=== PATIENT | female | born 1995 | race Caucasian/White ===

== ENCOUNTER 2020-01-03 16:55 | Emergency (ER) | payer OTHER, SELFPAY ==
[2020-01-03 17:17] VITALS: BP 115/68; PULSE 66; RESP 20; TEMP 36.5; O2SAT 100
--- NOTE | 2020-01-03 17:46 | ED.GENADULT ---
HPI - General Adult General Chief complaint: Upper Respiratory Infection Stated complaint: EARACHE/SORE THROAT/CONGESTION Time Seen by Provider: 01/03/20 17:46 Source: patient and RN notes reviewed Mode of arrival: ambulatory Limitations: no limitations History of Present Illness HPI narrative: This patient had onset on 12/24/2019 of a cough productive of green phlegm and green nasal drainage with postnasal drip sensation. She has not had a sore throat. She had one episode of vomiting and loose stools earlier in the illness but none since. There is no blood in the stools or black stools. She has not had any ear pain or drainage from the ears. She has had no known exposure to anyone with strep throat, mono, influenza, bronchitis, pneumonia that she is aware of. She is not been traveling. She has had no hematuria, no dysuria, no pyuria. She has had no rashes. She has been using OTC cough decongestant medicine which has helped some with the symptoms. Related Data Home Medications Medication Instructions Recorded Confirmed AM-GQ-uwglil/IL-yjwrqh-pdrjlef cap PO 01/03/20 [Vicks DayQuil-NyQuil] guaifenesin [Mucinex] mg PO 01/03/20 ibuprofen [Advil] 200 mg PO Q6H PRN 01/03/20 01/03/20 Allergies Allergy/AdvReac Type Severity Reaction Status Date / Time No Known Allergies Allergy Unknown Verified 01/03/20 17:27 Review of Systems Review of Systems: Narrative: CONSTITUTIONAL: Denies fever, chills, or sweats. Noncontributory except as pertains the past medical history and history of present illness. EYES: Denies visual changes, redness, or discharge. ENT: Denies rhinorrhea, congestion, sore throat, or otalgia. CARDIOVASCULAR: Denies chest pain, palpitations, or edema. RESPIRATORY: Denies cough or dyspnea. GASTROINTESTINAL: Denies abdominal pain, nausea, vomiting, or diarrhea. GENITOURINARY: Denies dysuria or hematuria. SKIN: Denies rash or itching. MUSCULOSKELETAL: Denies back pain, joint pain, or myalgia. NEUROLOGIC: Denies headache, numbness, or weakness. PSYCHIATRIC: Denies anxiety or depression. PMFSH Comments At time of signature, I have reviewed and agree with nursing past medical, surgical, social, and family history.Please see nursing chart for further information. There is no relevant family history pertinent to the presenting complaint. Exam Narrative: Exam Narrative: GENERAL: Well-appearing, well-nourished, and in no acute distress. HEAD: Normocephalic, atraumatic. There is no palpation tenderness over the frontal, maxillary, mastoid sinus areas. EYES: PERRLA and EOMI. EARS: TM's clear bilaterally and the canals are clear. NOSE: Nares have edematous mucosa with purulent rhinorrhea and postnasal drip. THROAT:Mucous membranes moist.Oropharynx Normal without erythema or exudates. NECK: Supple. No adenopathy of the neck, supraclavicular, axillary, or inguinal areas. RESPIRATORY: No respiratory distress. Airway patent. Respirations non-labored. The lungs have rhonchi in the upper and in the midlung osorio, but not the bases. There are no wheezes, no rales, no retractions, and no use accessory muscle respirations. Her pulse ox on room air is 100% current temperature is 36.5 ?C. No CVA pain. No pain McBurney's point. She has a negative Allen sign and negative Rovsing sign. HEART: Regular rate and rhythm. No murmur heard. Normal peripheral pulses. ABDOMEN: Soft, nontender, nondistended, normal active bowel sounds.No masses. No rebound or guarding, No organomegaly. There are no pulsatile masses no audible bruits. EXTREMITIES: No clubbing/cyanosis/ edema.Normal strength & range of motion. SKIN: Warm, dry.Normal color. There are no skin rash or skin lesions. She is well-nourished well-hydrated has moist mucous membranes and no tenting of the skin. NEURO: Alert and oriented. CN 2-12 grossly intact. No focal deficits. PSYCH: Normal mood and affect. Course Vital Signs Vital signs: Vital Signs Temperature 36.5 C 01/03/
== END 2020-01-03 17:54 | disposition home or self-care (01) ==
PROVIDERS: Emergency Provider Family Medicine; PCP Internal Medicine
DX: J40 Bronchitis, not specified as acute or chronic (principal); J01.10 Acute frontal sinusitis, unspecified
CPT/HCPCS: 99213; G0463

== ENCOUNTER 2021-04-07 15:18 | Emergency (ER) | payer BC, SELFPAY ==
[2021-04-07 15:24] VITALS: BP 121/72; PULSE 86; RESP 20; TEMP 36.4; O2SAT 100
--- NOTE | 2021-04-07 15:34 | ED.UPPEXIN ---
HPI - Extremity Injury (Upper) General Chief Complaint: Extremity Injury, Upper Stated Complaint: Right wrist pain Time Seen by Provider: 04/07/21 15:34 Source: patient and RN notes reviewed History of Present Illness HPI narrative: Patient is a 25-year-old female who presents the urgent care with complaints of right wrist pain. Patient states it is worse with any type of movement, typing or writing. Patient states that it started yesterday. Denies of any known trauma or injury. 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 Patient has been using ibuprofen with mild improvement. No other acute complaints. No acute distress noted. Patient aware of the plan of care. Some parts of this dictation were generated by voice recognition software and may contain typographical and/or grammatical inaccuracies. Related Data Home Medications Medication Instructions Recorded Confirmed ibuprofen [Advil] 200 mg PO Q6H PRN 01/03/20 01/03/20 bupropion HCl 150 mg PO DAILY 04/07/21 04/07/21 escitalopram oxalate 20 mg PO DAILY 04/07/21 04/07/21 montelukast 10 mg PO DAILY 04/07/21 04/07/21 norethindrone-e.estradiol-iron 24 tablet PO DAILY 04/07/21 04/07/21 [Aurovela 24 Fe] valacyclovir 500 mg PO DAILY 04/07/21 04/07/21 Allergies Allergy/AdvReac Type Severity Reaction Status Date / Time No Known Allergies Allergy Unknown Verified 04/07/21 15:29 Review of Systems Review of Systems: Narrative: CONSTITUTIONAL: Denies fever, chills, or sweats. EYES: Denies visual changes, redness, or discharge. ENT: Denies rhinorrhea, congestion, sore throat, or otalgia. CARDIOVASCULAR: Denies chest pain, palpitations, or edema. RESPIRATORY: Denies cough or dyspnea. GASTROINTESTINAL: Denies abdominal pain, nausea, vomiting, or diarrhea. GENITOURINARY: Denies dysuria or hematuria. SKIN: Denies rash or itching. MUSCULOSKELETAL: Reports of right wrist pain exacerbated with typing and writing NEUROLOGIC: Denies headache, numbness, or weakness. All other systems reviewed are negative, except as documented in HPI. [facility] Social History Social History Gender identity (if verbalized by the patient): Female Comments At the time of my signature, I reviewed and agree with the nursing past medical, surgical, social, and family history. There is no relevant family history pertinent to the patient complaint. Exam Narrative: Exam Narrative: GENERAL: This is a well-nourished, well-developed patient, in no apparent distress. HEAD: normocephalic, atraumatic. EYES: PERRL. Sclera clear/white. Vision is grossly intact. EARS: External ears normal NOSE: External nose normal with no obvious nasal discharge, nares without redness, no rhinorrhea. THROAT: Mucous membranes moist NECK: Neck supple SKIN: warm, intact with no suspicious lesions or rash, good texture and turgor. NEURO: awake, alert, and oriented to person, place and time. There were no obvious focal neurologic abnormalities. EXTREMITIES: No obvious edema, ecchymosis or erythema noted to the right upper extremity. No obvious deformity noted to the right wrist. Positive strong right radial pulse with capillary refill less than 2 seconds. Range of motion within normal limits. Course Vital Signs Vital signs: Vital Signs Temperature 97.6 F 04/07/21 15:24 Pulse Rate 86 04/07/21 15:24 Respiratory Rate 20 04/07/21 15:24 Blood Pressure 121/72 04/07/21 15:24 Pulse Oximetry 100 04/07/21 15:24 Temperature 97.6 F 04/07/21 15:24 Pulse Rate 86 04/07/21 15:24 Respiratory Rate 20 04/07/21 15:24 Blood Pressure 121/72 04/07/21 15:24 Pulse Oximetry 100 04/07/21 15:24 At the time of my signature, I reviewed and agree with the nursing past medical, surgical, social, and family history. There is no relevant family history pertinent to the patient complaint. MDM - Extremity Injury (Upper) MDM Narrative Medical decision making narrative: Advised the patient to obtain a cock-up
== END 2021-04-07 15:59 | disposition home or self-care (01) ==
PROVIDERS: Emergency Provider Nurse Practitioner Family; PCP Internal Medicine
DX: M77.8 Other enthesopathies, not elsewhere classified (principal); F41.9 Anxiety disorder, unspecified; F32.9 Major depressive disorder, single episode, unspecified
CPT/HCPCS: 99213; G0463